=== PATIENT | female | born 1935 | race Caucasian/White ===

== ENCOUNTER 2017-06-17 10:32 | Inpatient (IN) | payer MEDICARE, OTHER ==
[~2017-06-17] VITALS: Ht 160 cm; Wt 83.2 kg
[2017-06-17] MEDS ORDERED: SODIUM CHLORIDE 0.9% 1,000ML IVBOLUS ONE (11:30)
[2017-06-17] MEDS ORDERED: CEFTRIAXONE PMX 1GM/50ML 50 ML IVPB ONE (11:30)
[2017-06-17] MEDS ORDERED: SODIUM CHLORIDE FLUSH 10ML SYR IVF ONE (11:30)
[2017-06-17 11:32] LABS: ABG COLLECTION SITE RIGHT RADIAL; COLLATERAL CIRCULATION TESTING NORMAL
[2017-06-17] MEDS ORDERED: CEFTRIAXONE PMX 1GM/50ML 50 ML ONE (11:40)
[2017-06-17 11:42] LABS: HEMATOCRIT 38.6 % (34.6-47.8); HEMOGLOBIN 12.8 g/dL (11.7-16.4); WHITE BLOOD COUNT 7.9 x10^3/uL (3.4-10)
[2017-06-17 11:56] LABS: ASPARTATE AMINO TRANSFERASE 21 U/L (15-37); BLOOD UREA NITROGEN 25 mg/dL (7-18)
[2017-06-17] MEDS ORDERED: ALEN5TAB2 PO (12:46)
[2017-06-17] MEDS ORDERED: OXYB5TAB7 PO (12:46)
[2017-06-17] MEDS ORDERED: MEMA5TAB PO (12:46)
[2017-06-17] MEDS ORDERED: LEVO25TA2 PO (12:46)
[2017-06-17] MEDS ORDERED: SODIUM CHLORIDE 0.9% 1,000 ML IV ONE (13:46)
[2017-06-17] MEDS ORDERED: SODIUM CHLORIDE FLUSH 10ML SYR IVF PRN (14:00)
[2017-06-17] MEDS: CEFTRIAXONE PMX 1GM/50ML 50 ML IV SCH (15:54)
[2017-06-17] MEDS ORDERED: VANCOMYCIN PER PHARMACY MC PRN (16:00)
[2017-06-17] MEDS ORDERED: morphine SULFATE 10 MG/ML, 1ML IVPush PRN (16:00)
[2017-06-17] MEDS ORDERED: POLYETHYLENE GLYCOL 17 GM PACKET PO PRN (16:00)
[2017-06-17] MEDS ORDERED: ONDANSETRON 2MG/ML, 2ML IVPush PRN (16:00)
[2017-06-17] MEDS ORDERED: BISACODYL 10 MG SUPP PR PRN (16:00)
[2017-06-17] MEDS ORDERED: LORazepam 2 MG/ML, 1ML IVPush PRN (16:00)
[2017-06-17] MEDS ORDERED: OXYcodone IR 5MG TABLET PO PRN (16:00)
[2017-06-17] MEDS ORDERED: ACETAMINOPHEN 325 MG TABLET PO PRN (16:00)
[2017-06-17] MEDS ORDERED: VANCOMYCIN PMX 1GM/200ML 200 ML IV ONE (16:00)
[2017-06-17] MEDS ORDERED: D5%-0.9% NACL+KCL 20MEQ 1,000 ML IV SCH (16:00)
[2017-06-17] MEDS ORDERED: ENALAPRILAT 1.25 MG/ML, 2ML IVPush PRN (16:00)
[2017-06-17] MEDS ORDERED: LEVETIRACETAM 1,000 MG in SODIUM CHLORIDE 0.9% 100 ML IV SCH (16:00)
[2017-06-17] MEDS ORDERED: hydrALAzine 20 MG/ML, 1ML IVPush PRN (16:00)
[2017-06-17] MEDS ORDERED: PHARMACOKINETIC MONITORING MC PRN (16:30)
[2017-06-17] MEDS ORDERED: PHARMACOKINETIC CONSULTATION MC ONE (16:30)
[2017-06-17 16:55] VITALS: BP 160/74
[2017-06-17] MEDS ORDERED: VANCOMYCIN 1,700 MG in SODIUM CHLORIDE 0.9% 250 ML IV ONE (17:00)
[2017-06-17 19:06] VITALS: BP 166/81
[2017-06-17] MEDS: D5%-0.9% NACL 1,000 ML IV SCH (19:46)
[2017-06-17] MEDS: OXYBUTYNIN CHLORIDE 5 MG TABLET PO SCH (21:00)
[2017-06-17] MEDS: MEMANTINE 5MG TABLET PO SCH (21:00)
[2017-06-17] MEDS: HEPARIN 5,000 UNITS/ML, 1ML SQ SCH (21:54)
[2017-06-17] MEDS: DOXYCYCLINE 100 MG in DEXTROSE 5% 250 ML IV SCH (23:10)
[2017-06-18 00:01] VITALS: BP 175/78
[2017-06-18 00:22] VITALS: BP 155/70
[2017-06-18] MEDS: CEFTRIAXONE PMX 1GM/50ML 50 ML IV SCH ×2 (04:44→16:43)
[2017-06-18] MEDS: HEPARIN 5,000 UNITS/ML, 1ML SQ SCH ×3 (05:03→21:00)
[2017-06-18] MEDS: LEVOTHYROXINE 25 MCG TABLET PO SCH (06:00)
[2017-06-18 06:30] LABS: HEMATOCRIT 37.2 % (34.6-47.8); HEMOGLOBIN 12.4 g/dL (11.7-16.4)
[2017-06-18 06:42] LABS: ASPARTATE AMINO TRANSFERASE 19 U/L (15-37); BLOOD UREA NITROGEN 20 mg/dL (7-18)
[2017-06-18 07:57] VITALS: BP 152/71
[2017-06-18] MEDS: SENNA/DOCUSATE TABLET PO SCH (09:00)
[2017-06-18] MEDS: D5%-0.9% NACL 1,000 ML IV SCH ×2 (11:00→21:00)
[2017-06-18] MEDS: DOXYCYCLINE 100 MG in DEXTROSE 5% 250 ML IV SCH (13:08)
[2017-06-18] MEDS: MEMANTINE 5MG TABLET PO SCH ×2 (13:08→21:00)
[2017-06-18] MEDS: OXYBUTYNIN CHLORIDE 5 MG TABLET PO SCH ×2 (13:09→20:19)
[2017-06-18 14:30] VITALS: BP 165/72
[2017-06-18] MEDS ORDERED: VANCOMYCIN 1,500 MG in SODIUM CHLORIDE 0.9% 250 ML IV SCH (20:00)
[2017-06-18 20:30] VITALS: BP 134/88
[2017-06-19] MEDS: DOXYCYCLINE 100 MG in DEXTROSE 5% 250 ML IV SCH ×2 (00:55→14:08)
[2017-06-19 03:04] VITALS: BP 161/69
[2017-06-19] MEDS: CEFTRIAXONE PMX 1GM/50ML 50 ML IV SCH ×2 (04:13→16:27)
[2017-06-19] MEDS: D5%-0.9% NACL 1,000 ML IV SCH ×2 (05:00→09:27)
[2017-06-19 05:31] LABS: HEMATOCRIT 34.4 % (34.6-47.8); HEMOGLOBIN 11.5 g/dL (11.7-16.4); WHITE BLOOD COUNT 6.5 x10^3/uL (3.4-10)
[2017-06-19 05:41] LABS: BLOOD UREA NITROGEN 12 mg/dL (7-18)
[2017-06-19] MEDS: LEVOTHYROXINE 25 MCG TABLET PO SCH (05:54)
[2017-06-19] MEDS: HEPARIN 5,000 UNITS/ML, 1ML SQ SCH ×3 (05:54→19:58)
[2017-06-19 08:30] VITALS: BP 156/94
[2017-06-19] MEDS: SENNA/DOCUSATE TABLET PO SCH (09:00)
[2017-06-19] MEDS: OXYBUTYNIN CHLORIDE 5 MG TABLET PO SCH ×2 (09:26→19:58)
[2017-06-19] MEDS: MEMANTINE 5MG TABLET PO SCH ×2 (09:27→19:58)
[2017-06-19 14:30] VITALS: BP 140/71
[2017-06-19 19:14] VITALS: BP 137/77
[2017-06-19] MEDS ORDERED: FUROSEMIDE 40 MG/4 ML IV ONE (19:30)
[2017-06-19] MEDS ORDERED: TEMAZEPAM 15 MG CAPSULE PO PRN (19:30)
[2017-06-20 01:35] VITALS: BP 167/96
[2017-06-20] MEDS: DOXYCYCLINE 100 MG in DEXTROSE 5% 250 ML IV SCH ×2 (02:24→14:00)
[2017-06-20] MEDS: CEFTRIAXONE PMX 1GM/50ML 50 ML IV SCH ×2 (04:02→16:00)
[2017-06-20] MEDS: HEPARIN 5,000 UNITS/ML, 1ML SQ SCH ×3 (05:49→21:35)
[2017-06-20] MEDS: LEVOTHYROXINE 25 MCG TABLET PO SCH (05:53)
[2017-06-20 06:02] VITALS: BP 142/84
[2017-06-20 07:40] VITALS: BP 167/70
[2017-06-20] MEDS: OXYBUTYNIN CHLORIDE 5 MG TABLET PO SCH ×2 (10:36→21:35)
[2017-06-20] MEDS: MEMANTINE 5MG TABLET PO SCH ×2 (10:36→21:35)
[2017-06-20] MEDS: SENNA/DOCUSATE TABLET PO SCH (10:36)
[2017-06-20 15:17] VITALS: BP 133/73
[2017-06-20 20:19] VITALS: BP 142/65
[2017-06-21 01:07] VITALS: BP 155/74
[2017-06-21] MEDS: DOXYCYCLINE 100 MG in DEXTROSE 5% 250 ML IV SCH ×2 (01:08→13:37)
[2017-06-21] MEDS: CEFTRIAXONE PMX 1GM/50ML 50 ML IV SCH (04:24)
[2017-06-21 05:26] VITALS: BP 142/68
[2017-06-21] MEDS: HEPARIN 5,000 UNITS/ML, 1ML SQ SCH ×2 (05:26→13:37)
[2017-06-21] MEDS: LEVOTHYROXINE 25 MCG TABLET PO SCH (05:27)
[2017-06-21 06:25] LABS: BLOOD UREA NITROGEN 10 mg/dL (7-18)
[2017-06-21] MEDS: SENNA/DOCUSATE TABLET PO SCH ×2 (09:00→11:36)
[2017-06-21] MEDS: OXYBUTYNIN CHLORIDE 5 MG TABLET PO SCH (10:25)
[2017-06-21] MEDS: MEMANTINE 5MG TABLET PO SCH (10:25)
[2017-06-21] MEDS ORDERED: CEFDINIR 300 MG CAPSULE PO SCH (14:30)
[2017-06-21] MEDS ORDERED: DOXYCYCLINE 100MG TABLET PO SCH (14:30)
[2017-06-21 15:19] VITALS: BP 128/64
[2017-06-21] MEDS ORDERED: CEFD300C37 PO (15:51)
[2017-06-21] MEDS ORDERED: DOCU-131 PO (15:51)
[2017-06-21] MEDS ORDERED: DOXY100T PO (15:51)
== END 2017-06-21 20:25 | disposition home or self-care (01) | DRG 177 ==
LOC: ED 12:13 → EDIP 13:46 → 4WST 17:06
PROVIDERS: ADMIT Family Medicine; ATTEND Family Medicine
PROC: 0T9B70Z Drainage of Bladder with Drainage Device, Via Natural or Artificial Opening (ICD-10-PCS; principal; 2017-06-17)
DX: J69.0 Pneumonitis due to inhalation of food and vomit (principal); N17.0 Acute kidney failure with tubular necrosis; E43 Unspecified severe protein-calorie malnutrition; G93.41 Metabolic encephalopathy; G30.9 Alzheimer's disease, unspecified; E86.0 Dehydration; R13.10 Dysphagia, unspecified; F02.80 Dementia in other diseases classified elsewhere, unspecified severity, without behavioral disturbance, psychotic disturbance, mood disturbance, and anxiety; E03.9 Hypothyroidism, unspecified; I10 Essential (primary) hypertension; M81.0 Age-related osteoporosis without current pathological fracture; Z68.32 Body mass index [BMI] 32.0-32.9, adult; J01.90 Acute sinusitis, unspecified; Z66 Do not resuscitate; Z85.3 Personal history of malignant neoplasm of breast; Z90.11 Acquired absence of right breast and nipple
CPT/HCPCS: 36415; 36600; 51702; 70450; 71010; 80048; 80053; 80061; 81003; 82306; 82550; 82607; 82803; 83036; 83605; 83735; 84100; 84145; 84439; 84443; 85025; 85610; 85730; 87040; 93005; 96365; 96375; J0696; J1644; J1940; J3370; J7042; J7060; J0360; J7030; J7050

== ENCOUNTER → 2019-01-11 | Outpatient (CLI) | payer MEDICARE, OTHER ==
[~2019-01-11] MED LIST: ALEN5TAB2 PO; CEFD300C37 PO; DOCU-131 PO; DOXY100T PO; LEVO25TA2 PO; MEMA5TAB PO; OXYB5TAB7 PO
== END | disposition home or self-care (01) ==
LOC: CFH 12:29
PROVIDERS: ATTEND Psychiatry & Neurology Neurology
DX: F03.90 Unspecified dementia, unspecified severity, without behavioral disturbance, psychotic disturbance, mood disturbance, and anxiety (principal)
CPT/HCPCS: 70450